=== PATIENT | male | born 1950 ===

== ENCOUNTER 2024-05-07 06:15 | Day surgery (SDC) | payer OTHER ==
[2024-05-07] MEDS ORDERED: MIDAZOLAM HCL 2 MG/2 ML VIAL IV ONE (09:45)
[2024-05-07] MEDS ORDERED: DIPHENHYDRAMINE HCL 50 MG/ML VIAL 1ML IV ONE (09:45)
[2024-05-07] MEDS ORDERED: fentaNYL CITRATE 50 MCG/ML AMPUL IV ONE (09:45)
== END 2024-05-07 11:55 | disposition home or self-care (01) ==
LOC: AMB-ENDOS 06:15
PROVIDERS: ATTEND Surgery
DX: D12.2 Benign neoplasm of ascending colon (principal); K63.5 Polyp of colon; K57.30 Diverticulosis of large intestine without perforation or abscess without bleeding